=== PATIENT | male | born 1935 | race Caucasian/White ===

== ENCOUNTER 2023-10-18 07:22 | Outpatient (OUT) | payer MEDICARE, SELFPAY ==
--- NOTE | 2023-10-18 07:43 | MR_ITS ---
[address] [address] Patient Name: OLGA WILLETT MRN: [facility]:[id number] date: 1935 Sex: M Assigned Patient Location: LAB Current Patient Location: LAB Accession/Order Number: [id number] Exam Date: 10/18/2023 08:00 Report Date: 10/18/2023 09:54 At the request of: DOREEN CLEMENS Procedure: MR head/brain wo/w con EXAM: MR head/brain wo/w con CLINICAL INDICATION: Right Sided Tinnitus H93.11, Sensorineural Hearing Loss H90. Right-sided hearing loss COMPARISON: None TECHNIQUE/PROTOCOL: Standard brain and internal auditory canal protocol pre and post contrast MRI protocol performed. CONTRAST: 16 mL of Dotarem. FINDINGS: Cranial Nerves VII and VII: Normal bilaterally. No mass or abnormal enhancement. Type 2 right AICA loop. Cochleae: Grossly normal bilaterally. Semicircular Canals: Normal bilaterally. Porus Acusticus: Normal bilaterally. Cerebellopontine Angle: Normal bilaterally. No mass or abnormal enhancement. No restricted diffusion, extra-axial fluid collection, hydrocephalus, midline shift, or other mass effect. Intracranial flow voids are maintained. A couple scattered hyperintense T2/FLAIR subcortical foci are likely on the basis of chronic microvascular angiopathic changes. Moderate to advanced symmetric global volume loss with bilateral frontal predominance. Commensurate ventricular system caliber prominence. Normal marrow signal. No soft tissue abnormalities. Opacified right maxillary sinus. Mild scattered paranasal sinus mucosal thickening. MR/MR head/brain wo/w con IMPRESSION: 1. No mass or abnormal enhancement of either IAC or cerebellopontine angle. 2. No acute intracranial process or abnormal enhancement. Electronically authenticated by: MARCIA LAO Date: 10/18/2023 09:54
[2023-10-18 07:46] LABS: Estimated GFR (African America >60 (>=60); Estimated GFR (Non-African Ame 51 (>=60)
== END 2023-10-18 07:23 | disposition home or self-care (01) ==
PROVIDERS: PCP Family Medicine; Visit Provider Otolaryngology
DX: H90.3 Sensorineural hearing loss, bilateral (principal); H93.11 Tinnitus, right ear
CPT/HCPCS: 36415; 70553; 82565; A9575